=== PATIENT | male | born 1955 | race Caucasian/White ===

== ENCOUNTER 2017-10-26 09:05 | Emergency (ER) | payer OTHER ==
[~2017-10-26] VITALS: Ht 175.3 cm; Wt 68.0 kg
--- NOTE | 2017-10-26 10:32 | ED GI/GU/ABDOMINAL COMPLAINT ---
History of Present Illness General Chief Complaint: Abdominal Pain/Flank Pain Stated Complaint: ABDOMINAL PAIN Source: patient Exam Limitations: no limitations Vital Signs & Intake/Output Vital Signs & Intake/Output Vital Signs Date Time Temp Pulse Resp B/P B/P Pulse O2 O2 Flow FiO2 Mean Ox Delivery Rate 10/26 1425 97.9 74 18 114/75 98 Room Air Room Air 10/26 1135 76 18 118/67 97 Room Air Room Air 10/26 1031 97 10/26 0915 96.1 85 18 103/71 97 Room Air Room Air Allergies Coded Allergies: NO KNOWN ALLERGIES (02/22/13) Triage Note: PT TO ED WITH C/O UPPER ABD PAIN "FOR QUITE A WHILE", PT RECENTLY SAW PMD DR MEJIAS, AND REFERRED TO DR YOLANDA MULLIGAN FOR COLONOSCOPY, "EARLIEST APPT November". HX GERD, ULCERS. PT C/O NAUSEA, AND WHEN THE PAIN COMES "I GET REAL BAD DIARRHEA". Triage Nurses Notes Reviewed? yes Onset: Gradual Duration: 3 MONTHS Timing: recent history Quality/Severity: aching, dullness, sharpness Severity Numbers: 10 Location: epigastric Radiation: no radiation Activities at Onset: none Past Sexual History: Unobtainable at this time Modifying Factors: Worsens With: movement, palpation. HPI: Patient is a 62-year-old male, daily smoker presenting to the emergency department today complaining of epigastric pain since then constant for the past 3 months. Pain waxes and wanes but is pretty constant daily. Patient takes pantoprazole for this. He's been on the medication for the past 8 years for gastritis. He was told that he had stomach ulcers, has not seen GI since onset of symptoms. PCP has been prescribing pantoprazole for this patient. Denies any changes in weight. Patient also reporting that he has had diarrhea approximately 4-5 episodes daily for the past month and a half. No blood in the stool. Patient denies any recent travel, no recent antibiotics. He called his PCP regarding this problem and he scheduled a GI consultation with the patient for November 11. Symptoms worsens morning is when they came to the ER. Patient denying any current pain at this time. When the pain comes on its 10 out of 10. Pain does not radiate and located in the epigastric region. Patient denies any urinary frequency or urgency or dysuria. He does take approximately 2 Excedrin pills daily and has been doing this for the past several years for headaches. Other than that he does not use huwg-hey-dxyhtyg medications. He reports that sometimes eating food improves the pain and then after the pain is relieved several minutes later a gets worse. (Charisse Fatima) Reconcile Medications Tramadol HCl 50 MG TABLET 1 TAB PO BIDP PRN pain (Marcus WOLFELuis Antonio Paz) Past History Travel History Traveled to [place] past 21 day No Medical History Any Pertinent Medical History? 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 No (Charisse Fatima) Review of Systems Review of Systems Constitutional: Reports: no symptoms. Comments Review of systems: See HPI, All other systems negative. Constitutional, no chills fever or weight loss HEENT: No visual changes no sore throat no congestion Cardiovascular: No chest pain ,palpitation , orthopnea or ankle swelling Skin, no jaundice no rashes Respiratory: No dyspnea cough sputum or hemoptysis GI: no vomiting : No dysuria No hematuria Muscle skeletal: no back pain, no neck pain, Neurologic: No numbness no confusion Psych: No stress anxiety or depression,. Heme/endocrine: No bruising no bleeding no polyuria or polydipsia Immunology: No splenectomy or history of AIDS (Charisse Fatima) Physical Exam Physical Exam General Appearance: well developed/nourished, no apparent distress, alert, awake , comfortable Gastrointestinal: normal bowel sounds, soft, tenderness Comments: Well-developed well-nourished person in no acute distress HEENT: Pupils equally round and reactive to light and accommodation. Nose is atraumatic.. Pharynx normal. No swelling or edema. Neck: Normal inspection Back: Nontender Cardiovascular: Regular rate and rhythms no murmurs rubs or gallops, normal JVP Respiratory: Chest nontender. No respiratory distress.breath sounds clear to auscultation bilaterally Abdomen: Soft, mild tenderness palpation in the epigastric without rebound or guarding, negative Salgado's, nondistended, no appreciable organomegaly. Normal bowel sounds. No ascites Rectal: Brown stool, guaiac-negative. No external hemorrhoids appreciated on inspection, no palpable internal hemorrhoids noted. Extremity: No edema Neuro: Alert oriented x3 Skin: No appreciable rash on exposed skin, skin is warm and dry. Psych: Mood and affect is normal, memory and judgment is normal. Core Measures ACS in differential dx? Yes Sepsis Present: No Sepsis Focused Exam Completed? No (Uzair PIÑA,Charisse) Progress Differential Diagnosis: PEPTIC ULCER DISEASE, PERFORATED ULCER, GASTRITIS, GASTRIC CANCER, PANCREATITIS, BILIARY PROCESS, aaa, acs Plan of Care: Orders Procedure Date/time Status Full Liquid Diet 10/26 D Active Vital Signs 10/26 1301 Active Code Status 10/26 1301 Active Add-on Test (ER Only) 10/26 1155 Active Add-on Test (ER Only) 10/26 1053 Active EKG 10/26 1053 Active Add-on Test (ER Only) 10/26 1052 Active TROPONIN LEVEL 10/26 1030 Complete LIPID PANEL 10/26 1030 Complete LIPASE 10/26 1030 Complete LACTIC ACID 10/26 1030 Complete ETHANOL 10/26 1030 Complete AMYLASE 10/26 1030 Complete COMPREHENSIVE METABOLIC PANEL 10/26 1025 Complete CBC WITHOUT DIFFERENTIAL 10/26 1025 Complete Laboratory Tests 10/26/17 1030: Anion Gap 9, Estimated GFR > 60, BUN/Creatinine Ratio 20.0, Glucose 97, Lactic Acid 0.6 L, Calcium 9.9, Total Bilirubin 1.0, AST 14 L, ALT 30, Alkaline Phosphatase 86, Troponin I < 0.01, Total Protein 7.0, Albumin 4.4, Globulin 2.6, Albumin/Globulin Ratio 1.7, Triglycerides 158 H, Cholesterol 252 H, LDL Cholesterol, Calc 157 H, HDL Cholesterol 64 H, Cholesterol/HDL Ratio 4, Amylase 94, Lipase 1106 H, CBC w Diff NO MAN DIFF REQ, RBC 5.18, MCV 92.9, MCH 31.2 H, MCHC 33.6, RDW 13.7, MPV 7.7, Gran % 68.7, Lymphocytes % 22.8, Monocytes % 6.0, Eosinophils % 1.6, Basophils % 0.9, Absolute Granulocytes 5.9, Absolute Lymphocytes 2.0, Absolute Monocytes 0.5, Absolute Eosinophils 0.1, Absolute Basophils 0.1, Serum Alcohol < 10.0 10/26/17 1025: Urine Color Cancelled, Urine Clarity Cancelled, Urine pH Cancelled, Ur Specific [place] Cancelled, Urine Protein Cancelled, Urine Ketones Cancelled, Urine Nitrite Cancelled, Urine Bilirubin Cancelled, Urine Urobilinogen Cancelled, Ur Leukocyte Esterase Cancelled, Ur Microscopic Cancelled, Urine Hemoglobin Cancelled, Urine Glucose Cancelled Microbiology 10/26 1100 STOOL: Cryptosporidium Antigen - CAN Cancelled: Cancelled via OE: Patient Refused 10/26 1100 STOOL: Giardia Antigen (KELLEY) - CAN Cancelled: Cancelled via OE: Patient Refused 10/26 105 STOOL: Clostridium difficile Toxin A & B - CAN Cancelled: Cancelled via OE: Patient Refused Patient tolerating clear liquids without nausea or vomiting. Pain controlled at this time. Spoke with Dr. Castillo will get patient in to the office this week for evaluation. Patient will continue pantoprazole. Patient is nontoxic. Clear liquid diet. Diagnostic Imaging: Viewed by Me: CT Scan. Discussed w/RAD: CT Scan. Radiology Impression: PATIENT: BETH MORENO PRESENT AGE: 62 PATIENT ACCOUNT NO: [id number] : 57 LOCATION: [facility] ORDERING PHYSICIAN: Charisse PIÑA SERVICE DATE: 10/26/17 EXAM TYPE: CAT - CT ABD & PELVIS W IV CONTRAST EXAMINATION: CT ABDOMEN AND PELVIS WITH CONTRAST CLINICAL INFORMATION: Epigastric pain and diarrhea to rule out biliary/ pancreatic process. COMPARISON: None available. TECHNIQUE: Multidetector volumetric imaging was performed of the abdomen and pelvis following IV administration of 95 mL of Optiray 320 intravenous contrast. Sagittal and coronal reformatted images were obtained on the technologist's workstation. FINDINGS: There is mild dependent atelectasis at the left lung base. The liver, spleen, adrenal glands, gallbladder, and pancreas are normal. The kidneys exhibit symmetric nephrograms without evidence of hydronephrosis or nephrolithiasis. No focal renal lesions. Portions of the large and small bowel exhibit wall thickening, mucosal hyperenhancement with mild adjacent stranding suggesting an underlying enterocolitis in light of the history. There is also wall thickening involving the distal gastric antrum which appears edematous and that may reflect focal gastritis. The appendix is normal. There is no free air and there is no intra-abdominal free fluid. No mesenteric or retroperitoneal adenopathy. There is aortoiliac atherosclerotic calcification. Prostatic hypertrophy with the prostate indenting the bladder base which can be correlated with serum PSA and physical exam. Prostate measures up to 5 cm in transverse dimension. No pelvic adenopathy. No free fluid within the pelvis. There are no acute osseous abnormalities. No significant soft tissue abnormality. IMPRESSION: - Portions of the large and small bowel exhibit wall thickening, mucosal hyperenhancement with mild adjacent stranding suggesting an underlying enterocolitis in light of the history. There is also wall thickening involving the distal gastric antrum which appears edematous which may reflect focal gastritis. Endoscopy follow-up recommended if symptoms do not improve following conservative therapy to exclude alternative etiologies. - The pancreas and the gallbladder/biliary system are unremarkable. - Prostatic hypertrophy with the prostate indenting the bladder base which can be correlated with serum PSA and physical exam. DICTATED BY: Luis Antonio Chahal MD DATE/TIME DICTATED:10/26/171221 MAIL ROOM:EMILY DATE/TIME TRANSCRIBED:10/26/171221 CONFIDENTIAL, DO NOT COPY WITHOUT APPROPRIATE AUTHORIZATION. <Electronically signed in Other Vendor System> SIGNED BY: Luis Antonio Chahal MD 10/26/17 1237 Initial ED EKG: NSR Prior EKG: unchanged (Uzair PIÑA,Charisse) Departure Departure Time of Disposition: 1439 Disposition: HOME OR SELF CARE Condition: Stable Clinical Impression Primary Impression: Gastritis Qualifiers: Gastritis type: unspecified gastritis Chronicity: acute Gastritis bleeding: without bleeding Qualified Code: K29.00 - Acute gastritis without bleeding Secondary Impressions: Pancreatitis Qualifiers: Chronicity: acute Pancreatitis type: unspecified pancreatitis type Acute pancreatitis complication: unspecified Qualified Code: K85.90 - Acute pancreatitis without necrosis or infection, unspecified Referrals: Shaggy PALMER,Jeovanny Mejias MD,Robin (PCP/Family) Additional Instructions: Follow-up with Dr. Choe, they will get you in this week for an evaluation. Continue pantoprazole. 4 severe abdominal pain take Tylenol as directed. Increase fluids. Clear liquid diet for the next 24-48 hours. Return sooner for any worsening symptoms or concerns. Departure Forms: Customer Survey General Discharge Information Prescriptions: Current Visit Scripts Tramadol HCl 1 TAB PO BIDP PRN pain #10 TAB (Charisse Fatima) PA/FRUIT GROWER Co-Sign Statement Statement: ED Attending supervision documentation- [] I saw and evaluated the patient. I have also reviewed all the pertinent lab results and diagnostic results. I agree with the findings and the plan of care as documented in the PA's/FRUIT GROWER's documentation. [X] I have reviewed the ED Record and agree with the PA's/FRUIT GROWER's documentation. [] Additions or exceptions (if any) to the PAs/FRUIT GROWER's note and plan are summarized below: [] (Luis Antonio Velazquez DO)
[2017-10-26 10:43] LABS: ABSOLUTE BASOPHIL COUNT 0.1 /CUMM (0.0-0.2); ABSOLUTE EOSINOPHIL COUNT 0.1 /CUMM (0.0-0.7); ABSOLUTE GRANULOCYTE CT 5.9 /CUMM (1.4-6.5); ABSOLUTE MONOCYTE COUNT 0.5 /CUMM (0.10-0.60); BASOPHIL % 0.9 % (0.0-2.0); EOSINOPHIL % 1.6 % (0-5); GRANULOCYTE % 68.7 % (42.2-75.2); HEMATOCRIT 48.1 % (42-52); MEAN CORPUSCULAR HGB 31.2 PG (27.0-31.0); MEAN CORPUSCULAR HGB CONC 33.6 G/DL (33.0-37.0); MEAN CORPUSCULAR VOLUME 92.9 FL (80.0-94.0); MEAN PLATELET VOLUME 7.7 FL (7.4-10.4); PLATELET COUNT 276 /CUMM (130-400); RBC DISTRIBUTION WIDTH 13.7 % (11.5-14.5); RED BLOOD CELL CT 5.18 /CUMM (4.70-6.10); WHITE BLOOD CELL COUNT 8.6 /CUMM (4.8-10.8)
--- NOTE | 2017-10-26 12:37 | CT SCAN REPORT ---
EXAMINATION: CT ABDOMEN AND PELVIS WITH CONTRAST CLINICAL INFORMATION: Epigastric pain and diarrhea to rule out biliary/pancreatic process. COMPARISON: None available. TECHNIQUE: Multidetector volumetric imaging was performed of the abdomen and pelvis following IV administration of 95 mL of Optiray 320 intravenous contrast. Sagittal and coronal reformatted images were obtained on the technologist's workstation. FINDINGS: There is mild dependent atelectasis at the left lung base. The liver, spleen, adrenal glands, gallbladder, and pancreas are normal. The kidneys exhibit symmetric nephrograms without evidence of hydronephrosis or nephrolithiasis. No focal renal lesions. Portions of the large and small bowel exhibit wall thickening, mucosal hyperenhancement with mild adjacent stranding suggesting an underlying enterocolitis in light of the history. There is also wall thickening involving the distal gastric antrum which appears edematous and that may reflect focal gastritis. The appendix is normal. There is no free air and there is no intra-abdominal free fluid. No mesenteric or retroperitoneal adenopathy. There is aortoiliac atherosclerotic calcification. Prostatic hypertrophy with the prostate indenting the bladder base which can be correlated with serum PSA and physical exam. Prostate measures up to 5 cm in transverse dimension. No pelvic adenopathy. No free fluid within the pelvis. There are no acute osseous abnormalities. No significant soft tissue abnormality. IMPRESSION: - Portions of the large and small bowel exhibit wall thickening, mucosal hyperenhancement with mild adjacent stranding suggesting an underlying enterocolitis in light of the history. There is also wall thickening involving the distal gastric antrum which appears edematous which may reflect focal gastritis. Endoscopy follow-up recommended if symptoms do not improve following conservative therapy to exclude alternative etiologies. - The pancreas and the gallbladder/biliary system are unremarkable. - Prostatic hypertrophy with the prostate indenting the bladder base which can be correlated with serum PSA and physical exam.
[2017-10-26 14:25] VITALS: BP 114/75
[2017-10-26] MEDS ORDERED: TRAMADOL HCL50 M1 PO (14:48)
== END 2017-10-26 14:55 ==
LOC: ERH 09:05
PROVIDERS: Physician Assistant
DX: K29.00 Acute gastritis without bleeding (principal); R10.10 Upper abdominal pain, unspecified; F17.210 Nicotine dependence, cigarettes, uncomplicated; K21.9 Gastro-esophageal reflux disease without esophagitis
CPT/HCPCS: 74177; 87045; 87328; 87329; 93005; 93010; G0480